=== PATIENT | male | born 1955 | race Caucasian/White ===

== ENCOUNTER 2019-05-27 19:49 | Emergency (ER) | payer BC ==
[2019-05-27] MEDS ORDERED: Ibuprofen 600 MG TAB ONE (20:17)
--- NOTE | 2019-05-27 20:35 | RAD ---
LEFT RIBS GREATER THAN OR EQUAL TWO VIEW WITH A PA CHEST X=RAY: 05/27/19 HISTORY: Injury. FINDINGS: The right lung is clear. A small left layering effusion with left basilar volume loss. No acute displ aced fracture is appreciated. IMPRESSION: Small effusion with some atelectatic change left lung base likely sequela of splinting which can be s een with a nondisplaced rib fracture. No displaced rib fracture seen on today's exam. POS: HOME
== END 2019-05-27 20:55 | disposition home or self-care (01) ==
LOC: MADERS 19:49
DX: S20.212A Contusion of left front wall of thorax, initial encounter (principal); K21.9 Gastro-esophageal reflux disease without esophagitis; E78.00 Pure hypercholesterolemia, unspecified; E78.5 Hyperlipidemia, unspecified; F90.9 Attention-deficit hyperactivity disorder, unspecified type; Z79.82 Long term (current) use of aspirin; Z79.899 Other long term (current) drug therapy; W10.9XXA Fall (on) (from) unspecified stairs and steps, initial encounter